=== PATIENT | male | born 1970 | race Caucasian/White ===

== ENCOUNTER → 2022-03-26 | Outpatient (CLI) | payer OTHER, SELFPAY ==
[2022-03-26 10:15] LABS: Anion Gap 6 (5-15); BUN 9 mg/dL (7-18); BUN/Creat Ratio 11.4 RATIO (10-20); Calcium,Total 8.4 mg/dL (8.5-10.1); Chloride 106 mmol/L (98-107); Cholesterol 206 mg/dL (200); Creatinine, Serum 0.79 mg/dL (0.70-1.30); EST Glomerular Filtration Rate 110 mL/min (>60); Est Glom Filt Rate - Afr Amer 133 mL/min (>60); Glucose 110 mg/dL (74-106); High Density Lipoprotein 69 mg/dL; PSA,Total - Annual Screen 0.36 ng/mL (0.00-4.00); Sodium Level 138 mmol/L (136-145); Triglycerides 171 mg/dL; Very Low Density Lipoprotein 34 mg/dL (5-40)
[2022-03-26 10:33] LABS: Color, Urine Yellow (Yellow); Glucose, Dipstick Normal (Normal); Ketone-Dipstick Negative (Negative); Leukocyte Esterase-Dipstick Negative /ul (Negative); Nitrite-Dipstick Negative (Negative); Occult Blood-Urine Negative /ul (Negative); Protein-Dipstick Negative (Negative); Specific Gravity, Urine 1.005 (1.002-1.030); Urine Bilirubin Dipstick Negative (Negative); Urine Clarity Clear (Clear); Urine Urobilinogen Normal (Normal)
== END | disposition home or self-care (01) ==
LOC: MFPLAB 08:05
PROVIDERS: PCP Family Medicine; Referring Provider Family Medicine; Visit Provider Family Medicine
DX: Z00.00 Encounter for general adult medical examination without abnormal findings (principal); Z13.1 Encounter for screening for diabetes mellitus; Z13.220 Encounter for screening for lipoid disorders; Z12.5 Encounter for screening for malignant neoplasm of prostate
CPT/HCPCS: 36415; 80048; 80061; 81002; 84153; G0103

== ENCOUNTER → 2022-04-19 | Outpatient (CLI) | payer OTHER, SELFPAY | END | disposition home or self-care (01) | LOC: LABSPEC 09:01 | PROVIDERS: PCP Family Medicine; Referring Provider Surgery; Visit Provider Surgery | DX: K52.9 Noninfective gastroenteritis and colitis, unspecified (principal) | CPT/HCPCS: 82274; 83630; 87177; 87209; 87493; 87506 ==

== ENCOUNTER 2022-05-08 08:02 | Day surgery (SDC) | payer OTHER, SELFPAY ==
[2022-05-08] VITALS (7 sets, daily range): BP systolic 107–149; BP diastolic 72–89; PULSE 51–82; RESP 16–18; TEMP 36.7–36.9; O2SAT 97–100; BMI 22.5
[2022-05-08] MEDS: Lactated Ringers 1,000 ML 15 ML IV (08:32)
--- NOTE | 2022-05-08 09:00 | COLBX_PTH ---
PATIENT: VICTOR HUGO NUÑEZ LOC: EN U#:[id number] AGE/SX: 52/M ROOM: RE05/08/[address]: Dr. Celso Waggoner MD : 1970 BED: DIS: 05/08/2022 SPEC #: [id number] RECD: 05/08/22 10:14 STATUS: MARY DAVIS #: [id number] JARRETT: 05/08/22 09:[address]: Celso Waggoner DEPT: SURGICAL PATHOLOGY RECD BY: Joni Mustafa ENTERED: 05/08/22 11:09 SP TYPE: COLON BX OTHR DR: Dr. Jeramy Shea MD Tissues: A - Cecum, NOS B - Transverse colon C - Descending colon D - Sigmoid colon biopsy E - Rectum, NOS F - Rectum, NOS G - Rectum, NOS Procedures: Surgery Specimen Level IV HEADER OPERATION: Colonoscopy (MAC), polypectomy PRE-OP DIAGNOSIS: Chronic diarrhea, family history colon cancer, screening TISSUE SUBMITTED: A ? Cecum random biopsy, B ? Random transverse biopsy, C ? Descending random biopsy, D ? Sigmoid random biopsy, E ? Rectal biopsy, F ? Polypoid lesion rectum biopsy, G ? Rectal polyp MICROSCOPIC DIAGNOSIS A. Cecum, random biopsy: Fragments of colonic mucosa, no pathologic diagnosis. B. Transverse colon, random biopsy: Fragments of colonic mucosa, no pathologic diagnosis. C. Descending colon, random biopsy: A fragment of colonic mucosa, no pathologic diagnosis. D. Sigmoid colon, random biopsy: A fragment of colonic mucosa, no pathologic diagnosis. E. Rectum, biopsy: A fragment of colonic mucosa, no pathologic diagnosis. F. Polypoid lesion, rectum, biopsy: Fragments of colonic mucosa with focal hyperplastic changes. G. Rectal polyp, biopsy: Scant minute fragments of colonic epithelium, no pathologic diagnosis. SJ:beau 05/09/2022 MICROSCOPIC DESCRIPTION Slides are reviewed. GROSS DESCRIPTION A - Received in fixative is one container labeled with the patient's name and designated random cecum biopsy. The specimen consists of two irregular fragments of light panchal soft tissue that in aggregate measure 0.3 x 0.2 x 0.1 cm. The specimen is totally submitted in one cassette. B - Received in fixative is one container labeled with the patient's name and designated random transverse biopsy. The specimen consists of multiple irregular fragments of light panchal soft tissue that in aggregate measure 0.6 x 0.3 x 0.1 cm. The specimen is totally submitted in one cassette. C - Received in fixative is one container labeled with the patient's name and designated random descending biopsy. The specimen consists of one irregular fragment of light panchal soft tissue that measures 1.2 x 0.1 x 0.1 cm. The specimen is totally submitted in one cassette. D - Received in fixative is one container labeled with the patient's name and designated random sigmoid biopsy. The specimen consists of one irregular fragment of light panchal soft tissue that measures 1 x 0.2 x 0.1 cm. The specimen is totally submitted in one cassette. E - Received in fixative is one container labeled with the patient's name and designated rectal biopsy. The specimen consists of one irregular fragment of light panchal soft tissue that measures 0.3 x 0.3 x 0.1 cm. The specimen is totally submitted in one cassette. F - Received in fixative is one container labeled with the patient's name and designated polypoid lesion. The specimen consists of two irregular fragments of light panchal soft tissue that in aggregate measure 0.3 x 0.3 x 0.1 cm. The specimen is totally submitted in one cassette. G - Received in fixative is one container labeled with the patient's name and designated rectal polyp. The specimen consists of multiple irregular fragments of light panchal soft tissue, predominantly consisting of fecal material, that in aggregate measure 1 x 0.1 x 0.1 cm. The specimen is totally submitted in one cassette. / SJ:rg 05/08/2022 TC:5 CPT: 17111 x7
--- NOTE | 2022-05-08 09:07 | HP.PCM_ITS ---
History and Physical Date of Admission: 05/08/22 Date of Service:? 04/18/22 MR#: [id number] Acct: [id number] Name:VICTOR HUGO YOON Rep #: [id number] : 1970 ? ? Provider: Dr. Celso Waggoner MD Age/Sex:? 52/M ? ? Location: [facility] Status: Signed Intake Vital Signs ? 04/18/2214:30 Height 5 ft 10 in Weight: 157 lb BMI 22.5 BP 157/81 H Blood Pressure Location Lt brachial Position Sitting Respiration 16 Pulse 85 Pulse Source Monitor Temp 98.0 F Temp Source Temporal Pulse Oximetry (%) 97 Oxygen Delivery Method room air Intake Visit Reasons:?C-Scope HX of Colon Cancer Chief Complaint: C-scope Rn Hyperbaric Required: No Is patient in pain?: No Allergies No Known Allergies Allergy (Unverified 04/18/22 14:31) Medications NK? 04/18/22 [History Confirmed 04/18/22] PFSH Surgical History?(Updated 04/18/22 @ 14:28 by Caterina Mahoney) History of rectal surgery Family History?(Updated 04/18/22 @ 14:29 by Caterina Mahoney) Father Colon cancer Heart disease Hypertension Social History?(Updated 04/18/22 @ 14:29 by Caterina Mahoney) Smoking Status:? Never smoker alcohol intake:? current alcohol intake frequency: a few times a week substance use type:? does not use HPI HPI HPI: Patient is a 52-year-old male with a past history of imperforate anus and rectal prolapse who presents for a screening colonoscopy.? He is referred from Dr. Shea.? Patient has not had complete prior colonoscopy, but believes he had a partial scope to look at his large intestine approximately 30 years ago and believes those results were unremarkable, but admits his memory of those events is not strong.? They describe their bowel habits as frequently loose (he states that he was diagnosed by his former primary care physician with irritable bowel syndrome).? They have approximately 1-3 loose stools per day and spend roughly 10-15 minutes on the toilet without significant straining.? He states he has a suspicion that his loose stools are somewhat driven by his nerves and anxiety over having bowel movements.? They have not noticed recent bleeding or dark stools.? They do not regularly take fiber supplements (he states he formally took Metamucil for his diagnosis of IBS, but did not realize much benefit with it and decided to stop), but take a moderate amount with his diet. Mr. 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 And underwent a operation just a few days of life.? He then required proctoplasty operations (transanal) for rectal prolapse in [address] Ponce (sp?)? In [place].? He states that he used to experience significant mucus leakage with significant activity) and cites running as being the most provocative), but states this is hardly an issue now.? He denies true fecal incontinence. Patient has no personal history of colon cancer, inflammatory bowel disease, or diverticulitis. Patient has a family history of colon cancer that was diagnosed in his paternal grandfather at the age of 80. ? ? The patient's weight is not stable, and he states that he has lost some weight during the pandemic due to increased activity. The patient is not prescribed anticoagulants/blood thinners. Patient denies any significant history of GERD and states that he experiences heartburn only a couple times a year. ROS General General: No weight change, appetite, fatigue, colon cancer, breast cancer or weakness HEENT HEENT: No difficulty swallowing, eye injury, eye surgery, swollen glands or hoarseness Endo Endocrine: No thyroid disease, diabetes mellitus, thyroid cancer, Hair loss, heat intolerance or cold intolerance Skin Skin: No rash or changing moles Breast Breast: No left breast lump, right breast lump, nipple discharge, breast pain, abnormal mammogram, abnormal US or breast enlargement Musc Musculoskeletal: No back problems, arthritis, rheumatoid arthritis, gout or joint pain Cardio Cardiovascular: No murmur, pacemaker, heart disease, atrial fibrillation, high blood pressure, heart attack, heart stent, palpitations, shortness of breat with exertion or chest pain Psych Psychiatric: No depression, anxiety or hearing voices Resp Respiratory: No shortness of breath, No sleep apnea, No cough, No COPD, No asthma, No emphysema and No wheezing Gastro Gastrointestinal: No abdominal pain, No nausea or vomiting, No diarrhea, No constipation, No blood in stool, No acid reflux, No hemorrhoids, No ulcers, No gallbladder problem and No black,tarry stools Man Hematologic: No blood thinners, No blood disorders, No bleeding, No anemia and No blood clots Neuro Neurologic: No system reviewed and no additional complaints, except as documented, No as per HPI, No abnormal gait, No abnormal hearing, No abnormal movements, No abnormal speech, No behavioral changes, No burning sensations, No confusion, No convulsions, No disequilibrium, No dizziness, No localized weakness, No frequent falls, No headache(s), No lack of coordination, No loss of vision, No memory loss, No numbness, No other visual disturbances, No radicular pain, No restless legs, No sensory deficit, No syncope, No tingling, No tremor(s), No weakness and No other Exam Const General: cooperative and anxious Orientation: alert, awake and oriented x3 Other: Appears fit Resp Effort & Inspection: normal respiratory effort Auscultation: no rales, no rhonchi and no wheezes Cardio Rate: regular rate Rhythm: regular rhythm Heart Sounds: S1 normal and S2 normal GI Inspection: normal to inspection and non-distended Palpation: not soft and nontender Rectal Exam: visual inspection normal Assessment and Plan Assessment and Plan (1) Chronic diarrhea: ?Status:?Chronic ?Comment: Longstanding history of diarrhea.? It is unclear what work-up patient has received to date. ?Plan: ? Stool studies ? Random colonic biopsies during upcoming colonoscopy (2) Family hx of colon cancer requiring screening colonoscopy: ?Status:?Acute ?Comment: Grandfather diagnosed in early 80s.? Would suggest minimal genetic risk. ?Plan: ? Screening colonoscopy under local MAC.? I discussed the procedure in detail?including the bowel prep.? Patient states he has familiarity with bowel preps from his prior surgeries.? I have also informed him that he will require a car driver for the day of the procedure as this will be completed with a MAC anesthetic.? Patient expresses understanding and will arrange to meet this requirement. ? ? ? Orders: Orders Ova and Parasites 8623 Today K52.9 - Noninfective gastroenteritis and colitis, unspecified ? CDIFF (PCR) Today K52.9 - Noninfective gastroenteritis and colitis, unspecified ? ENTERIC PATHOGEN PANEL STOOL Today K52.9 - Noninfective gastroenteritis and colitis, unspecified ? Stool Occult Blood iFOB Today K52.9 - Noninfective gastroenteritis and colitis, unspecified ? Stool Lactoferrin/WBC Today K52.9 - Noninfective gastroenteritis and colitis, unspecified ? Plan This is a 52-year-old male, with a history of what sounds like imperforate anus and has required 3 procedures for this issue, who presents for screening colonoscopy.? He has a family history of colon cancer, however, his paternal grandfather was diagnosed in his 80s so this would not seem to confer a significant increase genetic risk.? Patient initially denies any personal GI complaints, but then details a longstanding history of diarrhea/loose stools.? He is uncertain whether he has ever undergone stool studies for this issue.? He states that he is learned to live with this, but does find it somewhat distressing.? Therefore, I have recommended we proceed with stool studies and a screening colonoscopy.? During the colonoscopy I will plan to obtain random colonic biopsies to rule out diagnoses such as microscopic colitis. I have re-examined the patient. There are no clinical changes since date of exam. Patient confirms a successful bowel prep with now clear output. We will therefore plan to proceed for screening colonoscopy under local MAC as discussed above.
--- NOTE | 2022-05-08 10:08 | OP.COLON_ITS ---
Patient Name: Michael Salcido Procedure Date: 05/08/2022 9:02 AM Date of : 1970 Age: 52 Procedure: Colonoscopy Indications: Screening for colorectal malignant neoplasm Providers: Celso Waggoner MD Medicines: See the Anesthesia note for documentation of the administered medications Patient Profile: Refer to note in patient chart for documentation of history and physical. Last Colonoscopy: none. The patient's first colonoscopy is today. Complications: No immediate complications. Estimated blood loss: Minimal. Procedure: Pre-Anesthesia Assessment: - The heart rate, respiratory rate, oxygen saturations, blood pressure, adequacy of pulmonary ventilation, and response to care were monitored throughout the procedure. After I obtained informed consent, the scope was passed under direct vision. Throughout the procedure, the patient's blood pressure, pulse, and oxygen saturations were monitored continuously. The colonoscope was introduced through the anus and advanced to the cecum, identified by appendiceal orifice and ileocecal valve. The colonoscopy was performed without difficulty. The patient tolerated the procedure well. The quality of the bowel preparation was good. Scope In: 9:16:38 AM Scope Withdrawal Time 0 hours 28 minutes 46 seconds Scope Out: 9:56:07 AM Total Procedure Duration Time 0 hours 39 minutes 29 seconds Findings: Multiple small-mouthed diverticula were found in the sigmoid colon. No biopsies or other specimens were collected for this exam. A 5 mm polyp was found in the rectum (benign-appearing lesion). The polyp was semi-pedunculated. The polyp was removed with a hot snare. Polyp resection was incomplete, and the resected tissue was partially retrieved. Estimated blood loss was minimal. A 3 mm polypoid lesion was found in the rectum. The lesion was sessile. No bleeding was present. Biopsies were taken with a cold forceps for histology. Estimated blood loss was minimal. The exam was otherwise without abnormality on direct and retroflexion views. Normal mucosa was found in the entire colon. Biopsies were taken with a cold forceps for histology. Estimated blood loss was minimal. A single small localized angioectasia without bleeding was found in the proximal sigmoid colon. No biopsies or other specimens were collected for this exam. Impression: - Diverticulosis in the sigmoid colon. No specimens collected. - One benign appearing 5 mm polyp in the rectum, removed with a hot snare. Polyp resection was incomplete, and the resected tissue was partially retrieved. - Benign polypoid lesion in the rectum. Biopsied. - The examination was otherwise normal on direct and retroflexion views. - Normal mucosa in the entire examined colon. Biopsied. - A single non-bleeding colonic angioectasia. No specimens collected. Recommendation: - Discharge patient to home (via wheelchair). - Resume previous diet today. - Continue present medications. - Await pathology results. - Repeat colonoscopy date to be determined after pending pathology results are reviewed for surveillance based on pathology results. - Telephone my office for pathology results in 1 week. Procedure Code(s): --- Professional --- 18667, Colonoscopy, flexible; with removal of tumor(s), polyp(s), or other lesion(s) by snare technique 62439, 59, Colonoscopy, flexible; with biopsy, single or multiple Diagnosis Code(s): --- Professional --- Z12.11, Encounter for screening for malignant neoplasm of colon K62.1, Rectal polyp D12.8, Benign neoplasm of rectum K55.20, Angiodysplasia of colon without hemorrhage K57.30, Diverticulosis of large intestine without perforation or abscess without bleeding CPT copyright 2017 [employer]. All rights reserved. The codes documented in this report are preliminary and upon health and safety specialist review may be revised to meet current compliance requirements. Celso Waggoner MD 05/08/2022 10:08:10 AM This report has been signed electronically. Number of Addenda: 0 Note Initiated On: 05/08/2022 9:02 AM
--- NOTE | 2022-05-08 10:09 | OP.CCLET_ITS ---
05/08/2022 Asim Shea [address] [place] [address] Re : Colonoscopy procedure for Michael Salcido Dear Dr. Shea This procedure was performed on April. My impressions and recommendations are as follows: Impressions : - Diverticulosis in the sigmoid colon. No specimens collected. - One benign appearing 5 mm polyp in the rectum, removed with a hot snare. Polyp resection was incomplete, and the resected tissue was partially retrieved. - Benign polypoid lesion in the rectum. Biopsied. - The examination was otherwise normal on direct and retroflexion views. - Normal mucosa in the entire examined colon. Biopsied. - A single non-bleeding colonic angioectasia. No specimens collected. Recommendations : - Discharge patient to home (via wheelchair). - Resume previous diet today. - Continue present medications. - Await pathology results. - Repeat colonoscopy date to be determined after pending pathology results are reviewed for surveillance based on pathology results. - Telephone my office for pathology results in 1 week. My findings are described in the full procedure note, which is enclosed. If I can be of further assistance, please feel free to contact me at Doctor phone number(s): , Work: . Sincerely, Celso Waggoner MD 05/08/2022 10:08:10 AM This report has been signed electronically.
== END 2022-05-08 11:02 | disposition home or self-care (01) ==
LOC: EN 08:05 → AC 08:07
PROVIDERS: PCP Family Medicine; Referring Provider Family Medicine; Visit Provider Surgery
PROC: 0DJD8ZZ Inspection of Lower Intestinal Tract, Via Natural or Artificial Opening Endoscopic (ICD-10-PCS; CPT 45378; principal; 2022-05-08 08:55)
DX: Z12.11 Encounter for screening for malignant neoplasm of colon (principal); K62.1 Rectal polyp; Z80.0 Family history of malignant neoplasm of digestive organs; K57.30 Diverticulosis of large intestine without perforation or abscess without bleeding; K55.20 Angiodysplasia of colon without hemorrhage
CPT/HCPCS: 45380; 45385; 88305; J7120; J2405

== ENCOUNTER → 2023-04-25 | Outpatient (CLI) | payer OTHER, SELFPAY ==
[2023-04-25 08:22] LABS: Bacteria 0 SEEN /hpf (None Seen); Mucous, Urine 0 SEEN /hpf (<or=2+); Red Blood Cells-Urine 0 SEEN /hpf (0-5); Squamous Epithelial Cells - UA 0 SEEN /hpf (0-5); White Blood Cells 0 SEEN /hpf (0-5)
[2023-04-25 10:06] LABS: Anion Gap 3 (5-15); BUN 13 mg/dL (7-18); BUN/Creat Ratio 15.6 RATIO (10-20); Calcium,Total 8.9 mg/dL (8.5-10.1); Chloride 109 mmol/L (98-107); Cholesterol 232 mg/dL (200); Creatinine, Serum 0.83 mg/dL (0.70-1.30); EST Glomerular Filtration Rate 103 mL/min (>60); Est Glom Filt Rate - Afr Amer 125 mL/min (>60); Glucose 100 mg/dL (74-106); High Density Lipoprotein 68 mg/dL; PSA,Total - Annual Screen 0.38 ng/mL (0.00-4.00); Sodium Level 139 mmol/L (136-145); Triglycerides 120 mg/dL; Very Low Density Lipoprotein 24 mg/dL (5-40)
[2023-04-25 10:56] LABS: Color, Urine Yellow (Yellow); Glucose, Dipstick Normal (Normal); Ketone-Dipstick Negative (Negative); Leukocyte Esterase-Dipstick Negative /ul (Negative); Nitrite-Dipstick Negative (Negative); Occult Blood-Urine Negative /ul (Negative); Protein-Dipstick Negative (Negative); Urine Bilirubin Dipstick Negative (Negative); Urine Clarity Clear (Clear); Urine Urobilinogen Normal (Normal); Urine pH 6.5 (5.0 - 8.0)
== END | disposition home or self-care (01) ==
LOC: LAB 08:18
PROVIDERS: PCP Family Medicine; Referring Provider Family Medicine; Visit Provider Family Medicine
DX: Z00.00 Encounter for general adult medical examination without abnormal findings (principal); Z13.1 Encounter for screening for diabetes mellitus; Z13.220 Encounter for screening for lipoid disorders; Z12.5 Encounter for screening for malignant neoplasm of prostate
CPT/HCPCS: 36415; 80048; 80061; 81001; 84153; G0103

== ENCOUNTER → 2024-04-29 | Outpatient (CLI) | payer OTHER, SELFPAY ==
[2024-04-29 18:04] LABS: Color, Urine Yellow (Yellow); Glucose, Dipstick Normal (Normal); Ketone-Dipstick Negative (Negative); Leukocyte Esterase-Dipstick Negative /ul (Negative); Nitrite-Dipstick Negative (Negative); Occult Blood-Urine Negative /ul (Negative); Protein-Dipstick 15 mg/dl (Negative); Specific Gravity, Urine 1.025 (1.002-1.030); Urine Bilirubin Dipstick Negative (Negative); Urine Clarity Clear (Clear); Urine Urobilinogen Normal (Normal)
[2024-04-29 18:37] LABS: Microalbumin,Random Urine 14.9 mg/L (NO RANGE EST.); Microalbumin:Creatinine Ratio 7.2 mg/g CRE (<30 mg/g CRE)
== END | disposition home or self-care (01) ==
LOC: MFPLAB 16:01
PROVIDERS: PCP Family Medicine; Visit Provider Family Medicine
DX: Z00.00 Encounter for general adult medical examination without abnormal findings (principal); R03.0 Elevated blood-pressure reading, without diagnosis of hypertension
CPT/HCPCS: 81002; 82043; 82570

== ENCOUNTER 2024-06-13 14:51 | Outpatient (CLI) | payer OTHER, SELFPAY ==
--- NOTE | 2024-06-13 15:45 | CT_ITS ---
STUDY: CT CHEST WITHOUT CONTRAST REASON FOR EXAM: Male, 54 years old. Hyperlipidemia limited chest over read only RADIATION DOSAGE (If Supplied By Facility): CTDIvol = ( 12.19 ) mGy, DLP = ( 195.04 ) mGycm TECHNIQUE: Transaxial imaging was performed without the administration of intravenous contrast material. Individualized dose optimization techniques were used for this CT. COMPARISON: No relevant priors. FINDINGS: CHEST The lungs are normal. There is no demonstrated pleural abnormality. There are calcifications of the coronary arteries. Mild enlargement of the precarinal lymph node. Normal hilar regions. Normal unenhanced pulmonary arteries. Normal aorta arch and descending thoracic aorta. There are degenerative changes of the thoracic spine. Small hiatal hernia. CT/Limited Chest CT Cardiac Only IMPRESSION: Coronary artery calcification. Mildly enlarged precarinal lymph node. Electronically Signed: Marcio Rodriguez MD at 13:41 EDT ,
--- NOTE | 2024-06-13 16:43 | CA.SCORE ---
Calcium Scoring Date of Study:: 06/13/24 Coronary Calcium Scoring: High-resolution Computed Tomographic imaging of the chest was performed on [ ], with particular attention paid to the coronary arteries. Images from the examination were analyzed for the presence and extent of coronary artery calcification , using coronary calcium quantification software. The patient tolerated the procedure well and there were no complications. The results of the coronary calcification analysis are provided below. Findings Coronary Artery Left Main (LM): 0 Left Anterior Descending (LAD): 43.5 Left Circumflex (LCX): 1 Right Coronary Artery (RCA): 0 Total Agatston Score: 44.5 Percentile Rankin-75th percentile Calcium Scoring Interpretation: Different methods to categorize the overall amount of coronary plaque. Overall amount CAC SIS Visual of coronary plaque P1 Mild -100 <2 1-2 vessels with mild amount of plaque P2 Moderate 101-300 3-4 1-2 vessels with moderate amount, 3 vessels with mild amount of plaque P3 Severe 301-999 5-7 3 vessels with moderate amount, 1 vessel with severe amount of plaque P4 Extensive >1000 >8 2-3 vessels with severe amount of plaque Calcium Score: Mild: 1-2 vessels w/mild amount of plaque Conclusion: Mild atherosclerotic plaquing
== END 2024-06-13 23:59 | disposition home or self-care (01) ==
LOC: CT 14:54
PROVIDERS: PCP Family Medicine; Referring Provider Family Medicine; Visit Provider Family Medicine
DX: E78.5 Hyperlipidemia, unspecified (principal); I25.10 Atherosclerotic heart disease of native coronary artery without angina pectoris; R59.9 Enlarged lymph nodes, unspecified
CPT/HCPCS: 75571; 76380

== ENCOUNTER → 2024-06-17 | Outpatient (CLI) | payer OTHER, SELFPAY ==
[2024-06-17 09:20] LABS: Anion Gap 7 (5-15); BUN 9 mg/dL (7-18); BUN/Creat Ratio 10.2 RATIO (10-20); Calcium,Total 8.8 mg/dL (8.5-10.1); Chloride 108 mmol/L (98-107); Cholesterol 218 mg/dL (200); Creatinine, Serum 0.89 mg/dL (0.70-1.30); EST Glomerular Filtration Rate 95 mL/min (>60); Est Glom Filt Rate - Afr Amer 115 mL/min (>60); Glucose 108 mg/dL (74-106); High Density Lipoprotein 70 mg/dL; PSA,Total - Annual Screen 0.39 ng/mL (0.00-4.00); Potassium 3.8 mmol/L (3.5-5.1); Sodium Level 142 mmol/L (136-145); Triglycerides 93 mg/dL; Very Low Density Lipoprotein 19 mg/dL (5-40)
== END | disposition home or self-care (01) ==
LOC: LAB 07:49
PROVIDERS: PCP Family Medicine; Referring Provider Family Medicine; Visit Provider Family Medicine
DX: Z13.1 Encounter for screening for diabetes mellitus (principal); Z13.220 Encounter for screening for lipoid disorders; Z12.5 Encounter for screening for malignant neoplasm of prostate
CPT/HCPCS: 36415; 80048; 80061; 84153; G0103

== ENCOUNTER → 2025-06-03 | Outpatient (CLI) | payer OTHER, SELFPAY ==
[2025-06-03 08:31] LABS: Mucous, Urine 0 SEEN /hpf (<or=2+); Red Blood Cells-Urine 0 SEEN /hpf (0-5); Squamous Epithelial Cells - UA 0 SEEN /hpf (0-5)
[2025-06-03 09:09] LABS: Color, Urine Yellow (Yellow); Glucose, Dipstick Normal (Normal); Ketone-Dipstick Negative (Negative); Leukocyte Esterase-Dipstick Negative /ul (Negative); Nitrite-Dipstick Negative (Negative); Occult Blood-Urine Negative /ul (Negative); Protein-Dipstick 15 mg/dl (Negative); Specific Gravity, Urine 1.010 (1.002-1.030); Urine Bilirubin Dipstick Negative (Negative)
[2025-06-03 09:43] LABS: Creatinine, Urine (random) 85.70 mg/dL (39.00-259.00); Microalbumin,Random Urine < 12.0 mg/L (<20 mg/L)
[2025-06-03 09:48] LABS: Anion Gap 9 (5-15); BUN 13 mg/dL (4-19); BUN/Creat Ratio 17.0 RATIO (10-20); Calcium,Total 8.9 mg/dL (7.6-11.0); Carbon Dioxide 27.5 mmol/L (21.0-32.0); Chloride 105 mmol/L (98-108); Cholesterol 227 mg/dL (<=200); Glucose 109 mg/dL (70-99); Low Density Lipoprotein Calc. 140 mg/dL; PSA,Total - Annual Screen 0.38 ng/mL (0.02-4.00); Potassium 3.9 mmol/L (3.3-5.1); Triglycerides 123 mg/dL; Very Low Density Lipoprotein 25 mg/dL (5-40); cholesterol:hdl ratio screen 3.50
== END | disposition home or self-care (01) ==
LOC: LABSPEC 08:29
PROVIDERS: PCP Family Medicine; Referring Provider Family Medicine; Visit Provider Family Medicine
DX: I10 Essential (primary) hypertension (principal); Z13.1 Encounter for screening for diabetes mellitus; Z13.220 Encounter for screening for lipoid disorders
CPT/HCPCS: 36415; 80048; 80061; 81001; 82043; 82570; 84153; G0103